=== PATIENT | female | born 1985 | race Caucasian/White ===

== ENCOUNTER → 2017-10-25 | Outpatient (CLI) | payer BC ==
[~2017-10-25] VITALS: Ht 154.9 cm; Wt 105.9 kg
[~2017-10-25] MED LIST: ASMANEX TW200 MICROG IH; AUGMENTIN875 MG PO; BENADRYL25 MG PO; COMPAZINE10 MG PO; DOXYCYCLINE HY100 MG PO; FIORICET 50-301 EACH PO; FLEXERIL10 MG PO; HYCODAN SYRUP480 ML PO; HYDROCODON-ACE1 EAC7 PO; KLONOPIN0.5 M1 PO; LEVAQUIN500 MG PO; LEVAQUIN750 MG PO; MICROGESTIN FE1 EAC1 PO; MOTRIN800 MG PO; MUCUS ER600 MG PO; NAPROSYN500 MG PO; NASACORT AQ16.5 GM BOTH NARES; PANTOPRAZOLE SO40 MG PO; PREDNISONE10 MG PO; PREDNISONE50 MG PO; PRENATAL VITAM1 EA11 PO; PROTONIX40 MG PO; PROVENTIL,2.5 MG/3 M IH; RANITIDINE HCL150 MG PO; SERTRALINE HCL100 MG PO; SINGULAIR10 MG PO; TESSALON PERLE100 MG PO; TUMS500 MG PO; TYLENOL REGULA325 MG PO; VENTOLIN HFA18 GM IH; ZITHROMAX Z-PA250 MG PO; ZOLOFT100 MG PO
[2017-10-25 10:43] VITALS: BP 141/79
== END | disposition home or self-care (01) ==
LOC: IVINF 10:30
DX: Z34.80 Encounter for supervision of other normal pregnancy, unspecified trimester (principal); Z31.82 Encounter for Rh incompatibility status; Z3A.00 Weeks of gestation of pregnancy not specified; Z67.91 Unspecified blood type, Rh negative
CPT/HCPCS: 96372; J2790